=== PATIENT | male | born 1955 | race Two or more races ===

== ENCOUNTER 2022-09-18 14:38 | Inpatient (IN) | payer BC, OTHER ==
[~2022-09-18] VITALS: Ht 180.3 cm; Wt 86.5 kg
[2022-09-18] MEDS ORDERED: ASPirin 81 mg TAB PO ONE (15:00)
[2022-09-18 15:49] LABS: Albumin 3.6 g/dL (3.4-5.0); Basophils # (auto) 0.1 10 ^3/uL (0-0.2); Basophils % (auto) 0.9 % (0.0-2.0); Calcium 9.5 mg/dL (8.5-10.1); Eosinophils # (auto) 0.6 10 ^3/uL (0-0.8); Eosinophils % (auto) 7.5 % (0.0-7.0); Hematocrit 29.5 % (41.0-53.0); Hemoglobin 10.1 g/dL (13.5-17.5); Lymphocytes # (auto) 2.7 10 ^3/uL (0.4-5.4); Lymphocytes % (auto) 33.5 % (10.0-50.0); Magnesium 1.8 mg/dL (1.6-2.6); Mean Corpuscular Hgb Conc. 34.1 g/dL (32.0-36.0); Mean Corpuscular Volume 93.7 fL (80.0-100.0); Monocytes # (auto) 0.5 10 ^3/uL (0-1.3); Monocytes % (auto) 6.3 % (0.0-12.0); Neutrophils # (auto) 4.2 10 ^3/uL (1.6-8.6); Neutrophils % (auto) 51.8 % (37.0-80.0); Nucleated Red Blood Cells % 0.2 %; Potassium 3.5 mmol/L (3.5-5.1); Red Blood Cells 3.15 10^6/uL (4.5-5.90); Red Cell Distribution Width 13.5 % (11.8-14.3); White Blood Cell 8.1 10^3/uL (4.4-10.8)
[2022-09-18 15:53] LABS: BUN/Creatinine Ratio 10.4 (10.0-20.0); Bilirubin, Total 0.4 mg/dL (0.2-1.0); Total Protein 7.1 g/dL (6.4-8.2)
[2022-09-18] MEDS ORDERED: MORPHINE SULFATE 4 MG/ML SYR/VIAL IV PRN (17:30)
[2022-09-18] MEDS ORDERED: ACETAMINOPHEN 325 MG TAB PO PRN (17:30)
[2022-09-18] MEDS ORDERED: ONDANSETRON HCL 4 MG/2 ML VIAL IV PRN (17:30)
[2022-09-18] MEDS ORDERED: ALBUTEROL SULF 2.5 MG/0.5ML(0.5%) NEB SOLN NEB PRN (17:30)
[2022-09-18] MEDS ORDERED: ASPirin 325 MG TAB PO ONE (17:30)
[2022-09-18] MEDS ORDERED: MAALOX PLUS or MAALOX 30 ML PO ONE (17:30)
[2022-09-18] MEDS ORDERED: NITROGLYCERIN 0.4 MG SL TAB SL PRN (17:30)
[2022-09-18 18:29] VITALS: BP 101/67
[2022-09-18 18:35] LABS: INR 0.96 (0.9-1.15)
[2022-09-18] MEDS ORDERED: IOHEXOL 350 MG/ML 100ML IJ ONE (20:17)
[2022-09-18] MEDS: ENOXAPARIN SOD 100 MG/1 ML SYRINGE SC SCH (20:24)
[2022-09-18] MEDS: ATORVASTATIN 20 MG TAB PO SCH (22:17)
[2022-09-18 23:27] VITALS: BP 130/81
[2022-09-19 01:29] VITALS: BP 130/81
[2022-09-19 08:35] VITALS: BP 140/76
[2022-09-19] MEDS: ENOXAPARIN SOD 100 MG/1 ML SYRINGE SC SCH ×2 (09:24→21:25)
[2022-09-19] MEDS: DOCUSATE SOD 100 MG CAP PO SCH (09:30)
[2022-09-19] MEDS: ASPirin 81 mg TAB PO SCH (09:30)
[2022-09-19] MEDS ORDERED: ENOXAPARIN SOD 30 MG/0.3 ML SYRINGE SC ONE (10:00)
[2022-09-19] MEDS ORDERED: ENOXAPARIN SOD 40 MG/0.4 ML SYRINGE SC SCH (10:00)
[2022-09-19 12:46] VITALS: BP 142/91
[2022-09-19] MEDS ORDERED: ROSU1TAB14 PO (16:32)
[2022-09-19] MEDS ORDERED: AMLO-489 PO (16:32)
[2022-09-19] MEDS ORDERED: CHOL20007 PO (16:32)
[2022-09-19] MEDS ORDERED: NAP500T PO (16:32)
[2022-09-19] MEDS ORDERED: ASPI81CH74 PO (16:32)
[2022-09-19 16:35] VITALS: BP 134/83
[2022-09-19 19:08] LABS: Alcohol, Urine < 3.0 mg/dL (0-10); Amphetamine Screen, Urine NEGATIVE (NEGATIVE); Barbiturate Scree,Urine NEGATIVE (NEGATIVE); Benzodiazephine Screen, Urine NEGATIVE (NEGATIVE); Cannabinoid Screen, Urine NEGATIVE (NEGATIVE); Cocaine Screen, Urine NEGATIVE (NEGATIVE); Opiate Scree,Urine NEGATIVE (NEGATIVE); Phencyclidine Screen, Urine NEGATIVE (NEGATIVE)
[2022-09-19] MEDS: ATORVASTATIN 20 MG TAB PO SCH (21:24)
[2022-09-19 22:00] VITALS: BP 152/96
[2022-09-20] MEDS ORDERED: MELATONIN 5 MG TAB PO ONE (02:00)
[2022-09-20 05:00] VITALS: BP 139/86
[2022-09-20 09:00] VITALS: BP 150/54
[2022-09-20] MEDS ORDERED: amLODIPine BESYLATE 5 MG TAB PO ONE (11:00)
[2022-09-20] MEDS: ASPirin 81 mg TAB PO SCH (11:03)
[2022-09-20] MEDS: ENOXAPARIN SOD 100 MG/1 ML SYRINGE SC SCH ×2 (11:03→11:05)
[2022-09-20] MEDS: DOCUSATE SOD 100 MG CAP PO SCH (11:04)
[2022-09-20] MEDS: SERTRALINE HCL 50 MG TAB PO SCH (11:04)
[2022-09-20 13:00] VITALS: BP 136/89
[2022-09-20] MEDS: HYDROcodone-ACET 5/325MG TAB PO PRN (13:05)
[2022-09-20 17:00] VITALS: BP 149/89
[2022-09-20] MEDS: ATORVASTATIN 20 MG TAB PO SCH (21:14)
[2022-09-21] VITALS (7 sets, daily range): BP systolic 90–148; BP diastolic 69–92
[2022-09-21] MEDS ORDERED: MELATONIN 5 MG TAB PO ONE (00:45)
[2022-09-21] MEDS ORDERED: ADENOSINE 74 MG in GIVE UN-DILUTED 0 ML IV STA (07:55)
[2022-09-21] MEDS: ENOXAPARIN SOD 100 MG/1 ML SYRINGE SC SCH ×2 (08:24→20:24)
[2022-09-21] MEDS: SERTRALINE HCL 50 MG TAB PO SCH (10:05)
[2022-09-21] MEDS: DOCUSATE SOD 100 MG CAP PO SCH (10:05)
[2022-09-21] MEDS: amLODIPine BESYLATE 5 MG TAB PO SCH (10:06)
[2022-09-21] MEDS: HYDROcodone-ACET 5/325MG TAB PO PRN ×2 (10:06→22:14)
[2022-09-21] MEDS: ASPirin 81 mg TAB PO SCH (10:07)
[2022-09-21] MEDS ORDERED: SERT25TA84 PO ×2 (13:35)
[2022-09-21] MEDS: ATORVASTATIN 20 MG TAB PO SCH (22:13)
[2022-09-22 05:00] VITALS: BP 119/64
[2022-09-22] MEDS: ENOXAPARIN SOD 100 MG/1 ML SYRINGE SC SCH (08:24)
[2022-09-22] MEDS: DOCUSATE SOD 100 MG CAP PO SCH (10:00)
[2022-09-22] MEDS: SERTRALINE HCL 50 MG TAB PO SCH (10:18)
[2022-09-22] MEDS: amLODIPine BESYLATE 5 MG TAB PO SCH (10:18)
[2022-09-22] MEDS ORDERED: SERT25TA84 PO (10:18)
[2022-09-22] MEDS: ASPirin 81 mg TAB PO SCH (10:18)
== END 2022-09-22 13:30 | disposition home or self-care (01) | DRG 303 ==
LOC: EDBD 14:38 → ER 14:38 → TELE 17:41 → TELE-EAST 23:27
PROVIDERS: ADMIT Nurse Practitioner Family; ATTEND Family Medicine
DX: I25.10 Atherosclerotic heart disease of native coronary artery without angina pectoris (principal); I24.9 Acute ischemic heart disease, unspecified; F10.10 Alcohol abuse, uncomplicated; D50.0 Iron deficiency anemia secondary to blood loss (chronic); E78.00 Pure hypercholesterolemia, unspecified; F32.A Depression, unspecified; I10 Essential (primary) hypertension; G89.29 Other chronic pain; Z53.20 Procedure and treatment not carried out because of patient's decision for unspecified reasons; J45.909 Unspecified asthma, uncomplicated; Z96.652 Presence of left artificial knee joint; Z87.891 Personal history of nicotine dependence; Z88.0 Allergy status to penicillin; Z91.199 Patient's noncompliance with other medical treatment and regimen due to unspecified reason; Z98.42 Cataract extraction status, left eye; Z98.41 Cataract extraction status, right eye; Z59.00 Homelessness unspecified; I25.2 Old myocardial infarction
CPT/HCPCS: 36415; 71045; 71275; 78452; 80053; 80307; 83735; 84100; 84484; 85025; 85379; 85610; 93005; 93017; 93306; G0378; J0153; J2405